=== PATIENT | female | born 1970 | race Caucasian/White ===

== ENCOUNTER 2017-07-08 09:51 | Emergency (ER) | payer OTHER ==
[~2017-07-08] VITALS: Ht 172.7 cm; Wt 70.3 kg
--- NOTE | ~2017-07-08 | EKG ---
[place] [address] [facility] [place] [address] ELECTROCARDIOGRAM REPORT Name: IRIS ROSE Room #: [facility] Adam#: [id number] Admission: 07/08/17 Attend Phys: Discharge: 07/08/17 Date of : 68 Report #: [id number] THIS REPORT FOR: //name// [facility] ED Test Date: 2017-07-08 Test Time: 10:20:38 Pat Name: IRIS ROSE Department: Room: Gender: F Emergency Services Director: GURU : 1970 Requested By: Shahnaz Garcia Order Number: [id number] MD: Dony Mas Measurements Intervals [place] Rate: 68 P: 24 MT: 139 QRS: 50 QRSD: 100 T: 44 QT: 408 QTc: 434 Interpretive Statements Sinus rhythm Normal tracing No previous ECG available for comparison Electronically Signed On 07-08-2017 16:14:35 REINFORCER by Dony Mas [email or web address] <ELECTRONICALLY SIGNED> By: Dony Mas MD, [facility] 07/08/17 1614 1020 1020 Dony Mas MD, FACC /EPI
[2017-07-08 10:59] LABS: ABSOLUTE NEUTROPHILS 3.6 thou/uL (1.4-8.2); BASOPHILS 0.6 % (0.0-2.0); EOSINOPHILS 0.7 % (0.0-3.0); HEMATOCRIT 43.3 % (37.0-47.0); HEMOGLOBIN 14.6 gm/dL (12.0-15.0); LYMPHOCYTES 29.2 % (24.0-44.0); MCH 28.8 pg (26.0-34.0); MCHC 33.7 g/dL (28.0-37.0); MCV 85.5 fL (80.0-100.0); MONOCYTES 6.6 % (1.0-8.0); PLATELET COUNT 181 thou/uL (150-400); POLYS 62.9 % (36.0-66.0); RBC 5.07 mil/uL (4.20-5.00); RDW 12.9 % (10.5-14.5); WBC 5.7 thou/uL (4.0-11.0)
[2017-07-08 11:06] LABS: ANION GAP 5 mmol/L (7-16); BUN 12 mg/dL (7-18); CALCIUM 9.2 mg/dL (8.5-10.1); CHLORIDE 105 mmol/L (98-107); CO2 30 mmol/L (21-32); CREATININE 1.1 mg/dL (0.6-1.0); GLUCOSE 100 mg/dL (74-106); POTASSIUM 4.2 mmol/L (3.5-5.1); SODIUM 140 mmol/L (136-145)
[2017-07-08 11:16] LABS: ALBUMIN 3.1 g/dL (3.4-5.0); SGOT 19 U/L (15-37); SGPT 42 U/L (30-65); TOTAL BILIRUBIN 0.2 mg/dL (<0.1-1.0); TOTAL PROTEIN 6.5 g/dL (6.4-8.2); TROPONIN-I < 0.04 ng/mL (<0.06)
[2017-07-08] MEDS ORDERED: ONDANSETRON HCL4 M2 PO (11:36)
== END 2017-07-08 11:49 ==
LOC: ER 09:51
PROVIDERS: Physician Assistant
DX: R55 Syncope and collapse (principal); R11.2 Nausea with vomiting, unspecified; F41.9 Anxiety disorder, unspecified